=== PATIENT | male | born 1970 | race Caucasian/White ===

== ENCOUNTER 2017-06-03 13:07 | Emergency (ER) | payer BC ==
--- NOTE | 2017-06-03 14:01 | EDM.PDOC ---
ED HPI GENERAL MEDICAL PROBLEM - General Chief Complaint: Skin Complaint Stated Complaint: RASH Time Seen by Provider: 06/03/17 13:25 Source of Information: Reports: Patient History Limitations: Reports: No Limitations - History of Present Illness INITIAL COMMENTS - FREE TEXT/NARRATIVE: Patient is a 47-year-old male presents ED complaining of a small bug bites to his feet, ankle, right forearm, and right lower back. He also has a single lesions to his right forearm and back. Multiple bites to the feet and ankle that are very itchy. States rash started this past while in [place]. States he had been walking on the beach, swimming in a heated pool, and in [place] States the lesions have grown in size with itching. No drainage noted. who was traveling with him does not have any bites at all. Patient admits to having sensitive skin. Denies getting sun burned. Denies any known bug bites. He works in the oil field and wears boots everyday. Apply's foot power to the shoes for odor resistance. He has been doing this for quite sometime with no similar findings. Has applied hydrocortisone ointment with some relief. Has also utilized tinactin with no relief. Rash has not significantly worsened. In addition on admission patient has elevated BP. States he has been evaluated for non DOT physical 8 wks prior with instructions to decrease weight and followup. He has no prior medical history. He is not taking any prescription medications. He chews tobacco. Utilizes alcohol on social basis. Denies any additional complaints. - Related Data Allergies Allergy/AdvReac Type Severity Reaction Status Date / Time No Known Allergies Allergy Verified 06/03/17 13:16 Home Meds: Home Meds Lisinopril 20 mg PO DAILY #30 tablet 06/03/17 [Rx] amLODIPine Besylate [Norvasc] 10 mg PO QAM #30 tablet 06/03/17 [Rx] Past Medical History Cardiovascular History: Reports: Hypertension Other Cardiovascular History: takes no meds for HTN. Dermatologic History: Reports: Other (See Below) Other Dermatologic History: 38% body denise to thighs, back. - Infectious Disease History Infectious Disease History: Reports: Chicken Pox - Past Surgical History HEENT Surgical History: Reports: Myringotomy w Tube(s) Social & Family History - Tobacco Use Smoking Status *Q: Never Smoker Second Hand Smoke Exposure: No - Caffeine Use Caffeine Use: Reports: Coffee - Recreational Drug Use Recreational Drug Use: No ED ROS GENERAL - Review of Systems Review Of Systems: ROS reveals no pertinent complaints other than HPI. ED EXAM, SKIN/RASH Exam: See Below Exam Limited By: No Limitations General Appearance: Alert, WD/WN, No Apparent Distress Ears: Hearing Grossly Normal Nose: Normal Inspection Throat/Mouth: Normal Voice, No Airway Compromise Neck: Normal Inspection, Supple Respiratory/Chest: No Respiratory Distress, Lungs Clear, Normal Breath Sounds, No Accessory Muscle Use Cardiovascular: Normal Peripheral Pulses, Regular Rate, Rhythm, No Murmur Peripheral Pulses: 4+: Radial (L), Radial (R) Neurological: Alert, Oriented, CN II-XII Intact, Normal Cognition, No Motor/ Sensory Deficits Psychiatric: Normal Affect, Normal Mood Skin: Warm, Dry Location, Skin: Upper Extremity, Right, Lower Extremity, Right, Lower Extremity , Left. No: Palms, Soles Characteristics: Maculopapular (single lesion to the right forearm, low back, and left inner knee. measurin approximately 0.5 to 1 cm in size. mildly erythematous with no drainage noted. Multiple lesions as such to the ankles and feet. Patient states they are very pruritic. ) Course - Vital Signs Last Recorded V/S: Last Vital Signs Temp 98.9 F 06/03/17 13:15 Pulse 100 06/03/17 13:15 Resp 16 06/03/17 13:15 BP 177/121 H 06/03/17 15:42 Pulse Ox 97 06/03/17 13:15 - Orders/Labs/Meds Labs: Laboratory Tests 06/03/17 06/03/17 Range/Units 14:05 14:25 Sodium 140 (136-145) mEq/L Potassium 3.7 (3.5-5.1) mEq/L Chloride 103 (98-107) mEq/L Carbon Dioxide 28 (21-32) mEq/L Anion Gap 12.7 (5-15) BUN 16 (7-18) mg/dL Creatinine 1.0 (0.7-1.3) mg/dL Est Cr Clr Drug Dosing 105.42 mL/min Estimated GFR (MDRD) > 60 (>60) mL/min BUN/Creatinine Ratio 16.0 (14-18) Glucose 98 (74-106) mg/dL Calcium 9.5 (8.5-10.1) mg/dL Urine Color Yellow (Yellow) Urine Appearance Clear (Clear) Urine pH 5.5 (5.0-8.0) Ur Specific [place] > or = 1.030 (1.005-1.030) Urine Protein Negative (Negative) Urine Glucose (UA) Negative (Negative) Urine Ketones Negative (Negative) Urine Occult Blood Negative (Negative) Urine Nitrite Negative (Negative) Urine Bilirubin Negative (Negative) Urine Urobilinogen 0.2 (0.2-1.0) Ur Leukocyte Esterase Negative (Negative) Urine RBC 0-5 (0-5) /hpf Urine WBC 0-5 (0-5) /hpf Ur Epithelial Cells 0-5 (0-5) /hpf Urine Bacteria Few (FEW) /hpf Urine Mucus Few (FEW) /hpf Meds: Medications Discontinued Medications Generic Name Dose Route Start Last Admin Trade Name Freq PRN Reason Stop Dose Admin Amlodipine Besylate 10 mg 06/03/17 15:23 06/03/17 15:42 Norvasc PO 06/03/17 15:24 10 mg ONETIME ONE Administration Famotidine 40 mg 06/03/17 15:23 06/03/17 15:41 Pepcid PO 06/03/17 15:24 40 mg ONETIME ONE Administration Lisinopril 20 mg 06/04/17 15:22 Prinivil PO 06/04/17 15:23 ONETIME ONE Lisinopril 20 mg 06/03/17 15:22 06/03/17 15:42 Prinivil PO 06/03/17 15:23 20 mg ONETIME ONE Administration - Re-Assessments/Exams Free Text/Narrative Re-Assessment/Exam: Patient's blood pressure is 193/123. Discussed with him about starting a blood pressure medication at this time. He agrees. Ordered basic labs including BMP and also UA. Plan will be lisinopril 20 mg every day and also Norvasc 10 mg at night. Resolution's to the feet Will start patient on Pepcid 40 mg every day for the next 7 days or as long as the lesions are present. He'll be applying Benadryl ointment to the affected lesions as well as 1% hydrocortisone ointment. Do think this is more allergic reaction secondary to sand fleas. 06/03/17 15:20 UA no protein present. BP on recheck was 177/122. Will start the patient on lisinopril 20mg PO and norvasc 10mg PO. He will purchase a BP machine and check regularly with log kept. Patient voiced understanding. Departure - Departure Time of Disposition: 15:23 Disposition: Home, Self-Care 01 Condition: Good Clinical Impression: Flea bite of multiple sites HTN (hypertension) Qualifiers: Hypertension type: unspecified Qualified Code(s): I10 - Essential (primary) hypertension Bug bites Qualifiers: Encounter type: initial encounter Qualified Code(s): W57.XXXA - Bitten or stung by nonvenomous insect and other nonvenomous arthropods, initial encounter - Discharge Information Prescriptions: amLODIPine Besylate [Norvasc] 10 mg PO QAM #30 tablet Lisinopril 20 mg PO DAILY #30 tablet Instructions: Heart Disease Prevention, Hypertension, [id number], Preventing Hypertension, Insect Bite, Adult, Managing Your Hypertension Referrals: PCP,None [Primary Care Provider] - Forms: ED Department Discharge, ED Return to Work/School Form Additional Instructions: Take lisinopril 20 mg every morning and also Norvasc 10 mg every morning as well. Check her blood pressure every day with blunt. On follow-up with her PCP please bring login also blood pressure machine with you. Push the fluids. Eat a low salt diet and limit alcohol use. Suggest losing some weight and exercising 3 to 5 times daily 30 minutes daily. Please see pcp on return to home in 3 wks. For the sand flee bites. Take pepicid 40mg everyday for duration of rash. Apply 1% hydrocortisone ointment and benadryl ointment to the affected areas three times daily. Do not itch areas since this will worsen symptoms and possibly causing infection. Return to the E.D. if you develop any new or worsening symptoms.
[2017-06-03] MEDS ORDERED: Lisinopril 20 MG Tab PO ONE (15:22)
[2017-06-03] MEDS ORDERED: amLODIPine 10 MG Tab PO ONE (15:23)
[2017-06-03] MEDS ORDERED: Famotidine 20 MG Tab PO ONE (15:23)
[2017-06-04] MEDS ORDERED: Lisinopril 20 MG Tab PO ONE (15:22)
== END 2017-06-03 15:45 | disposition home or self-care (01) ==
LOC: JD.ED 13:07
DX: S50.861A Insect bite (nonvenomous) of right forearm, initial encounter (principal); S30.860A Insect bite (nonvenomous) of lower back and pelvis, initial encounter; S80.262A Insect bite (nonvenomous), left knee, initial encounter; S90.562A Insect bite (nonvenomous), left ankle, initial encounter; S90.561A Insect bite (nonvenomous), right ankle, initial encounter; S90.862A Insect bite (nonvenomous), left foot, initial encounter; S90.861A Insect bite (nonvenomous), right foot, initial encounter; W57.XXXA Bitten or stung by nonvenomous insect and other nonvenomous arthropods, initial encounter; Z79.899 Other long term (current) drug therapy; I10 Essential (primary) hypertension
CPT/HCPCS: 36415; 80048; 81001; 99283; A9270